=== PATIENT | female | born 1975 | race Caucasian/White ===

== ENCOUNTER 2024-08-19 12:58 | Emergency (ER) | payer BC ==
[2024-08-19] MEDS ORDERED: ONDANSETRON 4 MG/2 ML VIAL ONE (13:26)
[2024-08-19] MEDS ORDERED: MORPHINE 4 MG/ML SYR ONE (13:27)
[2024-08-19] MEDS ORDERED: NA CHLORIDE 0.9% 1,000 ML ONE (13:27)
[2024-08-19 13:33] LABS: Absolute Basophils 0.1 K/uL (0-0.5); Absolute Eosinophils 0.2 K/uL (0-0.5); Absolute Lymphocytes (CBC) 1.2 K/uL (0.7-4.9); Absolute Monocytes 0.6 K/uL (0.1-1.3); Absolute Neutrophil 15.6 K/uL (1.8-8.0); Basophils % 0.6 % (0-1.3); Eosinophils % 1.4 % (0-4.4); Hematocrit 41.8 % (36.0-45.0); MCH 31.7 pg (27.0-35.0); MCHC 33.6 g/dL (32.0-36.0); MCV 94.4 fL (80-100); Monocytes % 3.4 % (3.3-12.3); Neutrophils % 87.6 % (41.7-73.7); Platelets 349 thou/uL (152-406); RBC Red Blood Cell Count 4.43 M/uL (3.86-4.86); Red Cell Distribution Width 13.5 % (12.1-15.2)
[2024-08-19 13:51] LABS: ALT/SGPT < 14 U/L (13-56); AST/SGOT 15 U/L (15-37); Albumin 3.5 g/dL (3.4-5.0); Alkaline Phosphatase 79 U/L (45-117); Anion Gap 9.6 mEq/L (5.0-15.0); BUN Blood Urea Nitrogen 13 mg/dL (7-18); Bicarbonate 25 mEq/L (21-32); Globulin 3.6 g/dL (2.3-3.5); Glomerular Filtration Rate 91 ml/min (=/>90); Glucose Level 136 mg/dL (74-106); Lipase 42 U/L (13-75); Potassium 3.6 mEq/L (3.5-5.1); Protein, Total 7.1 g/dL (6.4-8.2); Sodium Level 137 mEq/L (136-145)
[2024-08-19 14:14] LABS: White Blood Cell Scan OK (OK)
[2024-08-19 14:15] LABS: Blood Morphology Comment NOT SEEN (NOT SEEN); Platelet Estimate ADEQ
--- NOTE | 2024-08-19 14:24 | RAD REPORT ---
EXAMINATION: CT ABDOMEN AND PELVIS WITH CONTRAST CLINICAL INDICATION: ABD PAIN TECHNIQUE: CT abdomen and pelvis was performed, after the administration of IV contrast, as per [facility] protocol. Axial, sagittal and coronal reconstructions were obtained. One or more of the following dose reduction techniques were used: Automated exposure control, adjustment of the mA and k V according to patient size, and iterative reconstruction. Unless otherwise specified, incidental findings do not require dedicated imaging follow-up. COMPARISON: 08/13/2018 FINDINGS: LOWER CHEST: The visualized lung bases are clear. LIVER: Normal in size and contour. No focal lesion. Grossly unremarkable gallbladder. SPLEEN: Normal size. No focal lesion. PANCREAS: No mass, ductal dilation, or solomon-pancreatic fluid. ADRENALS: Normal; no mass. KIDNEYS: Normal size and contour. No hydronephrosis. GASTROINTESTINAL TRACT: No evidence of free air, significant intra-abdominal free fluid, bowel obstru ction or abscess. APPENDIX: Appendix surgically absent. LYMPH NODES: No lymphadenopathy. MUSCULOSKELETAL: No acute or suspicious osseous abnormality. ADDITIONAL FINDINGS: None. IMPRESSION: No acute or concerning abnormalities seen in the abdomen or pelvis.
--- NOTE | 2024-08-19 14:56 | RAD REPORT ---
EXAM: Right upper quadrant ultrasound. CLINICAL HISTORY: ABD PAIN COMPARISON: None. FINDINGS: Gallbladder: Normal. Bile ducts: No intrahepatic or extrahepatic biliary dilatation. Common bile duct measures 4-5 mm. Limited imaging of the liver shows no concerning finding. IMPRESSION: Unremarkable exam.
[2024-08-19 15:19] LABS: Sqamous Epithelial <5 /HPF (None Seen); Urine Bacteria None Seen /HPF (<20); Urine Culture Reflex Order NOT NEEDED; Urine Microscopic Reflex YN ORDER UMIC; Urine Mucus Slight /HPF (None Seen); Urine RBC <5 /HPF (None Seen); Urine WBC <5 /HPF (<5)
[2024-08-19 15:20] LABS: Specific Gravity > 1.030 (1.005-1.030); Urine Bilirubin Negative (Negative); Urine Clarity Clear (Clear); Urine Color Colorless (Yellow); Urine Glucose Negative (Negative); Urine Ketones Negative (Negative)
[2024-08-19 15:21] LABS: Urine Blood Trace (Negative); Urine Nitrite Negative (Negative); Urine Protein Negative (Negative); Urine Urobilinogen Normal (Normal)
--- NOTE | 2024-08-19 15:26 | EDPHYS ---
Physician Documentation [facility] Name: Emily Mcknight Age: 49 yrs Sex: Female : 1975 Arrival Date: 08/19/2024 Time: 12:58 Bed 3 Private MD: ED Physician Iván Tate HPI: 08/19 16:48 This 49 yrs old Female presents to ER via Ambulatory with complaints of dr5 Abdominal Pain, Low Back Pain, Nausea. 16:48 The patient presents with abdominal pain right lower quadrant. Onset: The dr5 symptoms/episode began/occurred this morning. Patient is a 49-year-old female with no past medical history coming in with right lower back pain that is been chronic and intermittent that worsened this morning with nausea. Patient reports she has had 3-4 episodes of vomiting due to being nauseous. Patient denies chest pain, shortness of breath, diarrhea, dysuria, fever.. 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 - Infectious Disease History:: Denies. - Social history:: Smoking status: Patient denies any tobacco usage or history of. ROS: 16:48 Constitutional: as per hpi dr5 Exam: 16:48 Constitutional: This is a well developed, well nourished patient who is awake, alert, dr5 and in no acute distress. Head/Face: Normocephalic, atraumatic. ENT: Nares patent. No nasal discharge, no septal abnormalities noted. Tympanic membranes are normal and external auditory canals are clear. Oropharynx with no redness, swelling, or masses, exudates, or evidence of obstruction, uvula midline. Mucous membranes moist. Neck: Trachea midline, no thyromegaly or masses palpated, and no cervical lymphadenopathy. Supple, full range of motion without nuchal rigidity, or vertebral point tenderness. No Meningismus. Chest/axilla: Normal chest wall appearance and motion. Nontender with no deformity. No lesions are appreciated. Cardiovascular: Regular rate and rhythm with a normal S1 and S2. Normal PMI, no JVD. No pulse deficits. Respiratory: Lungs have equal breath sounds bilaterally, clear to auscultation. No rales, rhonchi or wheezes noted. No increased work of breathing, no retractions or nasal flaring. Back: No spinal tenderness. No costovertebral tenderness. Full range of motion. Tenderness to palpation over right lower paraspinal back. Skin: Warm, dry with normal turgor. Normal color with no rashes, no lesions, and no evidence of cellulitis. Neuro: Awake and alert, GCS 15, oriented to person, place, time, and situation. Cranial nerves II-XII grossly intact. Motor strength 5/5 in all extremities. Sensory grossly intact. Cerebellar exam normal. Normal gait. Vital Signs: 13:07 BP 71 / 46; Pulse 92; Resp 19 S; Temp 97.8(O); Pulse Ox 100% on R/A; Weight 61.23 kg aa5 (R); Height 5 ft. 3 in. (R); 13:15 BP 130 / 68 Supine; aa5 13:50 BP 135 / 90; Pulse 82; Resp 15; Pulse Ox 100% on R/A; cm10 15:24 BP 121 / 70; Pulse 81; Resp 16; Pulse Ox 100% ; bp 13:07 Body Mass Index 23.91 (61.23 kg, 160.02 cm) aa5 MDM: 13:01 Medical Screening Exam initiated dr5 16:48 Differential diagnosis: cholecystitis, Cholelithiasis, diverticulitis, gastritis, dr5 Muscular Pain. Data reviewed: vital signs, nurses notes, lab test result(s), radiologic studies, CT scan, ultrasound. I considered the following discharge prescriptions or medication management in the emergency department Medications were administered in the Emergency Department. See MAR. Care significantly affected by the following Social Determinants of Health: Poor access to healthcare and/or lack of insurance, Poor access to transportation, Problems related to employment. Counseling: I had a detailed discussion with the patient and/or guardian regarding the historical points, exam findings, and any diagnostic results supporting the discharge/admit diagnosis, the presence of at least one elevated blood pressure reading (>120/80) during this emergency department visit, lab results, radiology results, the need for outpatient follow up, for definitive care, a family practitioner, to return to the emergency department if symptoms worsen or persist or if there are any questions or concerns that arise at home. Medication response: Zofran relieved the patient's nausea. Response to treatment: the patient's symptoms have resolved after treatment. ED course: Reviewed patient's lab work, CT, ultrasound, and urinalysis with patient. Printed results and given to patient to take to primary care doctor. Patient reports that her pain is better. Will trial patient on steroids for possible muscular pain. No signs of cholecystitis or diverticulitis or any other abnormality noted on CT scan or ultrasound. Patient does report that her pain has been going on for approximately a year. She will establish care with primary care doctor this week and follow-up. All questions answered patient feeling better on discharge.. 08/19 13:12 Order name: CBC with Diff; [facility] 13:12 Order name: CMP; Complete Time: 13:58 [facility] 08/19 13:12 Order name: Lipase; Complete Time: 13:58 [facility] 08/19 13:12 Order name: Urinalysis w/ reflexes; Complete Time: 15:22 [facility] 08/19 14:15 Order name: CBC Smear Scan; Complete Time: 14:26 [facility] 08/19 13:12 Order name: CT Abd/Pelvis - IV Contrast Only; Complete Time: 14:26 [facility] 08/19 14:26 Order name: US Abdomen Limited: RUQ please; Complete Time: 14:57 [facility] 08/19 13:12 Order name: IV Saline Lock; Complete Time: 13:33 [facility] 08/19 13:12 Order name: Labs collected and sent; Complete Time: 13:33 dr5 Administered Medications: 13:32 Drug: NS 0.9% IV 1000 ml IV at 1 bolus Per protocol; to be given as a bolus over 60 bp minutes Route: IV; Rate: 1 bolus; Site: right antecubital; 14:30 Follow up: Response: No adverse reaction; IV Status: Completed infusion; IV Intake: cm10 1000ml 13:33 Drug: Ondansetron IVP 4 mg IVP once; over 2 minutes Route: IVP; Site: right antecubital;bp 14:33 Follow up: Response: No adverse reaction; Marked relief of symptoms cm10 13:33 Drug: morphine IVP or IV 4 mg IVP once over 4 mins Route: IVP; Infused Over: 4 mins; bp Site: right antecubital; 14:33 Follow up: Response: No adverse reaction; Marked relief of symptoms cm10 Disposition Summary: 08/19/24 15:25 Discharge Ordered Notes: Location: Home dr5 Condition: Stable dr5 Diagnosis - Lower abdominal pain, unspecified dr5 - Low back pain dr5 Followup: dr5 - With: Emergency Department - When: As needed - Reason: Worsening of condition Followup: dr5 - With: Private Physician - When: 1 - 2 days - Reason: Recheck today's complaints, Continuance of care, Re-evaluation by your physician Discharge Instructions: - Discharge Summary Sheet dr5 - Acute Back Pain, Adult dr5 Forms: - Work release form dr5 - Medication Reconciliation Form dr5 - Prescription Opioid Use dr5 - Patient Portal Instructions dr5 - Leadership Thank You Letter dr5 Prescriptions: - Zofran 4 mg Oral Tablet - take 1 tablet ORAL route every 12 hours As needed; 20 tablet; Refills: 0, dr5 Product Selection Permitted - Hydrocodone-Acetaminophen 5-325 mg Oral Tablet - take 1 tablet ORAL route every 6 hours As needed; 12 tablet; Refills: 0, dr5 Product Selection Permitted - Medrol (Mohamud) 4 mg Oral Tablets, Dose Pack - take 1 tablet ORAL route as directed - follow package instructions; 1 packet; dr5 Refills: 0, Product Selection Permitted Addendum: 08/21/2024 14:44 I was immediately available for consultation during this patient's visit. I did not e c2 personally see the patient or discuss the patient with the BOB. . Signatures: Dispatcher [employer] Mellissa Jean Baptiste RN RN aa5 Rahul Hong RN RN bp Iván Tate MD MD ec2 Meng Heredia, PRESS OFFBEARER-C PRESS OFFBEARER-[facility]5 Xuan Uribe RN cm10 Corrections: (The following items were deleted from the chart) 08/19 14:27 14:27 Abdomen Limited+US.RAD.BRZ ordered. EDMS EDMS 15:17 13:12 TEST, SERUM+SC.LAB.BRZ ordered. EDMS EDMS
--- NOTE | 2024-08-19 15:26 | ER ---
Nurse's Notes [facility] Name: Emily Mcknight Age: 49 yrs Sex: Female : 1975 Arrival Date: 08/19/2024 Time: 12:58 Bed 3 Private MD: Diagnosis: Lower abdominal pain, unspecified;Low back pain Presentation: 08/19 13:07 Chief complaint: Patient states: right lower back pain and RLQ pain that began aa5 approximately "1 year ago" but has gotten gradually worse. Coronavirus screen: At this time, the client does not indicate any symptoms associated with coronavirus-19. Ebola Screen: Patient denies travel to an Ebola-affected area in the 21 days before illness onset. Initial Sepsis Screen: Does the patient meet any 2 criteria? HR > 90 bpm. Does the patient have a suspected source of infection? No. Patient's initial sepsis screen is negative. Risk Assessment: Do you want to hurt yourself or someone else? Patient reports no desire to harm self or others. Onset of symptoms was July 2024. 13:07 Method Of Arrival: Ambulatory aa5 13:07 Acuity: WILFRIDO 2 aa5 Triage Assessment: 13:10 General: Appears in no apparent distress. uncomfortable, Behavior is cooperative, bp appropriate for age, anxious. Pain: Complains of pain in abdomen. EENT: No deficits noted. Neuro: No deficits noted. Cardiovascular: No deficits noted. Respiratory: No deficits noted. GI: Abdomen is non-distended, Reports lower abdominal pain. : No signs and/or symptoms were reported regarding the genitourinary system. Derm: No deficits noted. Musculoskeletal: No deficits noted. 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 - Infectious Disease History:: Denies. - Social history:: Smoking status: Patient denies any tobacco usage or history of. Screenin:24 [facility] ED Fall Risk Assessment (Adult) History of falling in the last 3 months, bp including since admission No falls in past 3 months (0 pts) Confusion or Disorientation No (0 pts) Intoxicated or Sedated No (0 pts) Impaired Gait No (0 pts) Mobility Assist Device Used No (0 pt) Altered Elimination No (0 pt) Score/Fall Risk Level 0 - 2 = Low Risk Oriented to surroundings. Abuse screen: Denies threats or abuse. Denies injuries from another. Nutritional screening: No deficits noted. Tuberculosis screening: No symptoms or risk factors identified. Assessment: 13:09 Reassessment: Pt vomited 200mls during triage. . aa5 14:32 Reassessment: Patient and/or family updated on plan of care and expected duration. Pain cm10 level reassessed. Patient is alert, oriented x 3, equal unlabored respirations, skin warm/dry/pink. Patient states feeling better. 15:42 GI: Bowel sounds present X 4 quads. Abd is soft and non tender X 4 quads. bp Vital Signs: 13:07 BP 71 / 46; Pulse 92; Resp 19 S; Temp 97.8(O); Pulse Ox 100% on R/A; Weight 61.23 kg aa5 (R); Height 5 ft. 3 in. (R); 13:15 BP 130 / 68 Supine; aa5 13:50 BP 135 / 90; Pulse 82; Resp 15; Pulse Ox 100% on R/A; cm10 15:24 BP 121 / 70; Pulse 81; Resp 16; Pulse Ox 100% ; bp 13:07 Body Mass Index 23.91 (61.23 kg, 160.02 cm) aa5 ED Course: 13:00 Patient arrived in ED. al6 13:01 [facility] Hered[facility]C [facility]. dr5 13:01 Iván Tate MD is Attending Physician. dr5 13:07 Arm band placed on. aa5 13:10 Triage completed. aa5 13:13 Rahul Hong, JAZMIN is Primary Nurse. bp 13:15 Initial lab(s) drawn, by me, sent to lab. Inserted saline lock: 20 gauge in right aa5 antecubital area, using aseptic technique. Blood collected. Flushed with 10 mL NS. 14:04 CT Abd/Pelvis - IV Contrast Only In Process Unspecified. EDMS 14:33 Patient taken to ultrasound. via wheelchair. cm10 14:49 Patient moved back from ultrasound. cm10 14:52 US Abdomen Limited: RUQ please In Process Unspecified. EDMS 15:09 Urine collected: clean catch specimen, clear. bp 15:24 Patient has correct armband on for positive identification. bp 15:41 No provider procedures requiring assistance completed. IV discontinued, intact, bp bleeding controlled, No redness/swelling at site. Pressure dressing applied. 15:43 Provided Education on: na. bp Administered Medications: 13:32 Drug: NS 0.9% IV 1000 ml IV at 1 bolus Per protocol; to be given as a bolus over 60 bp minutes Route: IV; Rate: 1 bolus; Site: right antecubital; 14:30 Follow up: Response: No adverse reaction; IV Status: Completed infusion; IV Intake: cm10 1000ml 13:33 Drug: Ondansetron IVP 4 mg IVP once; over 2 minutes Route: IVP; Site: right antecubital;bp 14:33 Follow up: Response: No adverse reaction; Marked relief of symptoms cm10 13:33 Drug: morphine IVP or IV 4 mg IVP once over 4 mins Route: IVP; Infused Over: 4 mins; bp Site: right antecubital; 14:33 Follow up: Response: No adverse reaction; Marked relief of symptoms cm10 Medication: 15:43 VIS not applicable for this client. bp Intake: 14:30 IV: 1000ml; Total: 1000ml. cm10 Outcome: 15:25 Discharge ordered by MD. dr5 15:41 Discharged to home ambulatory, with family, bp 15:41 Condition: stable 15:41 Discharge instructions given to patient, Instructed on discharge instructions, follow up and referral plans. medication usage, Demonstrated understanding of instructions, follow-up care, medications, Prescriptions given X 3, 15:43 Patient left the ED. bp Signatures: Dispatcher [employer] EDMO Mellissa Dee RN RN aa5 Rahul Hong RN RN Xuan Zafar RN RN cm10 Meng Heredia, [employer] INTERN-5 Mariela Mora Corrections: (The following items were deleted from the chart) 13:11 13:07 Pulse 92bpm; Resp 19bpm; Spontaneous; Pulse Ox 100% RA; Temp 97.8F Oral; 61.23 kg aa5 Reported; Height 5 ft. 3 in. Reported; BMI: 23.9; aa5 13:11 13:07 Acuity: WILFRIDO 3 aa5 aa5
[2024-08-19 16:18] VITALS: TEMP 97.8; O2SAT 100
[2024-08-19 16:29] VITALS: BP 121/70
== END 2024-08-19 15:43 | disposition home or self-care (01) ==
LOC: ER 12:58
DX: R10.31 Right lower quadrant pain (principal); M54.50 Low back pain, unspecified; R11.0 Nausea
CPT/HCPCS: 96361; 85025; 81001; 36415; 83690; 80053; 74177; 76705; 96375; 96374; 99285; Q9967; J2405; J7030